=== PATIENT | female | born 1990 | race Caucasian/White ===

== ENCOUNTER 2024-02-24 09:16 | Emergency (ER) | payer OTHER ==
[~2024-02-24] VITALS: Ht 152.4 cm; Wt 54.9 kg
[2024-02-24 09:23] VITALS: BP 127/64; TEMP 98.5; O2SAT 100
[2024-02-24] MEDS: TDAP [DIPH/PERTUSSIS/TET] 0.5 ML VIAL IM ONE (09:41)
[2024-02-24] MEDS ORDERED: LIDOCAINE 1% INJ 50 ML MDV IJ ONE (09:43)
[2024-02-24] MEDS: LIDOCAINE 1% INJ 50 ML MDV IJ ONE (09:44)
[2024-02-24] MEDS: BACI/NEOM/POLY B OINT PKT 1 UDPKT PACKET TP ONE (09:45)
[2024-02-24] MEDS ORDERED: IBUP-1955 PO (09:57)
== END 2024-02-24 11:41 | disposition home or self-care (01) ==
LOC: ER 09:16
DX: S61.211A Laceration without foreign body of left index finger without damage to nail, initial encounter (principal); Z60.2 Problems related to living alone; W26.0XXA Contact with knife, initial encounter; Y93.89 Activity, other specified; Y92.098 Other place in other non-institutional residence as the place of occurrence of the external cause; Y99.8 Other external cause status
CPT/HCPCS: 12001; 99282; A6403; J3490

== ENCOUNTER 2024-03-02 09:42 | Emergency (ER) | payer OTHER ==
[~2024-03-02] VITALS: Ht 167.6 cm; Wt 60.3 kg
[~2024-03-02 09:42] MED LIST: IBUP-1955 PO
[2024-03-02 09:48] VITALS: BP 127/64; TEMP 98.7
[2024-03-02 11:00] VITALS: O2SAT 100
== END 2024-03-02 11:01 | disposition home or self-care (01) ==
LOC: ER 10:09
DX: S01.81XD Laceration without foreign body of other part of head, subsequent encounter (principal); Z79.1 Long term (current) use of non-steroidal anti-inflammatories (NSAID); Z60.2 Problems related to living alone; X58.XXXD Exposure to other specified factors, subsequent encounter